=== PATIENT | male | born 1955 | race Caucasian/White ===

== ENCOUNTER 2018-03-27 14:45 | Emergency (ER) | payer MEDICARE, OTHER ==
[~2018-03-27] VITALS: Ht 185.4 cm; Wt 140.0 kg
[2018-03-27 15:24] LABS: BASOPHILS # (AUTO) 0.03 x10^3/uL (0-0.1); BASOPHILS % (AUTO) 0 % (0-1); EOSINOPHILS # (AUTO) 0.11 x10^3/uL (0-0.4); EOSINOPHILS % (AUTO) 2 % (1-7); LYMPHOCYTES # (AUTO) 1.71 x10^3/uL (1-3.4); LYMPHOCYTES % (AUTO) 27 % (22-44); MD NO; MEAN CORPUSCULAR HEMOGLOBIN 32.7 pg (27.5-34.5); MEAN CORPUSCULAR HGB CONC 33.3 g/dL (33.2-36.2); MEAN CORPUSCULAR VOLUME 98.3 fL (81-97); MEAN PLATELET VOLUME 8.5 fL (7.4-10.4); MONOCYTES # (AUTO) 0.43 x10^3/uL (0.2-0.8); MONOCYTES % (AUTO) 7 % (2-9); NEUTROPHILS # (AUTO) 4.15 x10^3/uL (1.8-6.8); NEUTROPHILS % (AUTO) 65 % (42-75); PLATELET COUNT 197 x10^3/uL (130-400); RED BLOOD COUNT 5.32 x10^6/uL (4.38-5.82); RED CELL DISTRIBUTION WIDTH 13.8 % (9.4-14.8)
[2018-03-27] MEDS ORDERED: LORazepam 1MG TABLET ONE ×2 (15:27)
[2018-03-27] MEDS ORDERED: LORazepam 1MG TABLET PO ONE (15:30)
[2018-03-27 15:32] LABS: ALBUMIN 3.5 g/dL (3.4-5.0); ANION GAP 8 mmol/L (5-15); CALCIUM 8.3 mg/dL (8.5-10.1); CHLORIDE 110 mmol/L (98-107); CREATININE 0.79 mg/dL (0.7-1.3)
[2018-03-27 16:26] VITALS: BP 124/95
[2018-03-27] MEDS ORDERED: ACETAMINOPHEN 500 MG TABLET ONE (16:52)
[2018-03-27] MEDS ORDERED: ACETAMINOPHEN 500 MG TABLET PO ONE (17:00)
== END 2018-03-27 17:14 | disposition home or self-care (01) ==
LOC: ED 16:50
DX: F41.1 Generalized anxiety disorder (principal); Z00.00 Encounter for general adult medical examination without abnormal findings; I10 Essential (primary) hypertension
CPT/HCPCS: 36415; 70450; 80048; 82040; 85025; 99285

== ENCOUNTER 2018-06-08 15:25 | Inpatient (IN) | payer OTHER ==
[~2018-06-08] VITALS: Ht 185.4 cm; Wt 136.0 kg
[2018-06-08] MEDS ORDERED: SODIUM CHLORIDE 0.9% 1,000ML IVBOLUS ONE (16:00)
[2018-06-08] MEDS ORDERED: SODIUM CHLORIDE FLUSH 10ML SYR IVF ONE (16:00)
[2018-06-08 16:18] LABS: BASOPHILS # (AUTO) 0.04 x10^3/uL (0-0.1); BASOPHILS % (AUTO) 0 % (0-1); EOSINOPHILS # (AUTO) 0.11 x10^3/uL (0-0.4); EOSINOPHILS % (AUTO) 1 % (1-7); LYMPHOCYTES # (AUTO) 1.22 x10^3/uL (1-3.4); LYMPHOCYTES % (AUTO) 15 % (22-44); MD NO; MEAN CORPUSCULAR HEMOGLOBIN 33.1 pg (27.5-34.5); MEAN CORPUSCULAR HGB CONC 33.2 g/dL (33.2-36.2); MEAN CORPUSCULAR VOLUME 99.9 fL (81-97); MEAN PLATELET VOLUME 7.9 fL (7.4-10.4); MONOCYTES # (AUTO) 0.86 x10^3/uL (0.2-0.8); MONOCYTES % (AUTO) 10 % (2-9); NEUTROPHILS # (AUTO) 6.09 x10^3/uL (1.8-6.8); NEUTROPHILS % (AUTO) 73 % (42-75); PLATELET COUNT 189 x10^3/uL (130-400); RED BLOOD COUNT 4.79 x10^6/uL (4.38-5.82); RED CELL DISTRIBUTION WIDTH 14.4 % (9.4-14.8)
[2018-06-08] MEDS ORDERED: ALBUTEROL/IPRATROPIUM 2.5MG/0.5MG, 3 ML ONE (16:18)
[2018-06-08 16:30] LABS: ALANINE AMINOTRANSFERASE 14 U/L (12-78); ALBUMIN 3.2 g/dL (3.4-5.0); ANION GAP 7 mmol/L (5-15); CALCIUM 8.2 mg/dL (8.5-10.1); CHLORIDE 107 mmol/L (98-107); CREATININE 0.71 mg/dL (0.7-1.3)
[2018-06-08] MEDS ORDERED: ALBUTEROL/IPRATROPIUM 2.5MG/0.5MG, 3 ML NPPB ONE (16:30)
[2018-06-08 16:34] LABS: ALKALINE PHOSPHATASE 59 U/L (45-117); BILIRUBIN,TOTAL 0.4 mg/dL (0.2-1.0); TOTAL PROTEIN 7.3 g/dL (6.4-8.2); TROPONIN I < 0.015 ng/mL (0.000-0.045)
[2018-06-08] MEDS ORDERED: CEFTRIAXONE 1,000 MG in SODIUM CHLORIDE 0.9% 50 ML IV ONE (17:00)
[2018-06-08] MEDS ORDERED: AZITHROMYCIN 500 MG in SODIUM CHLORIDE 0.9% 250 ML IV ONE (17:00)
[2018-06-08] MEDS ORDERED: CEFTRIAXONE PMX 1GM/50ML 50 ML ONE (17:26)
[2018-06-08] MEDS ORDERED: POLYETHYLENE GLYCOL 17 GM PACKET PO PRN (17:30)
[2018-06-08] MEDS ORDERED: BISACODYL 10 MG SUPP PR PRN (17:30)
[2018-06-08] MEDS ORDERED: ACETAMINOPHEN 325 MG TABLET PO PRN (17:30)
[2018-06-08] MEDS: CEFTRIAXONE 1,000 MG in SODIUM CHLORIDE 0.9% 50 ML IV SCH (17:30)
[2018-06-08] MEDS ORDERED: ONDANSETRON ODT 4 MG PO PRN (17:30)
[2018-06-08 18:24] LABS: FOLATE LEVEL 9.5 ng/mL (3.1-17.5)
[2018-06-08 18:48] VITALS: BP 149/85
[2018-06-08 19:04] LABS: MICROSCOPIC AUTO
[2018-06-08 19:06] LABS: CULTURE INDICATED? YES
[2018-06-08] MEDS: AZITHROMYCIN 500 MG in SODIUM CHLORIDE 0.9% 250 ML IV SCH (20:02)
[2018-06-08 20:21] VITALS: BP 159/96
[2018-06-08] MEDS ORDERED: ASPIRIN 81 MG TABLET EC PO SCH (21:00)
[2018-06-08] MEDS ORDERED: DIAZEPAM 2 MG TABLET PO SCH (21:00)
[2018-06-08] MEDS ORDERED: PROPRANOLOL 20 MG TABLET PO SCH (21:00)
[2018-06-08] MEDS ORDERED: RISPERIDONE 2 MG TABLET PO SCH (21:00)
[2018-06-08] MEDS ORDERED: ACETAMINOPHEN 325 MG TABLET PO SCH (21:00)
[2018-06-08] MEDS ORDERED: DIVALPROEX 500 MG TABLET.DR PO SCH (21:00)
[2018-06-08] MEDS ORDERED: DIVA500T4 PO ×2 (22:10)
[2018-06-08] MEDS ORDERED: PROP20TA PO (22:10)
[2018-06-08] MEDS ORDERED: PROP10TA PO (22:10)
[2018-06-08] MEDS ORDERED: RISP4TAB34 PO (22:10)
[2018-06-08] MEDS ORDERED: DIAZ2TAB PO (22:10)
[2018-06-08] MEDS ORDERED: ASPI-515 PO (22:10)
[2018-06-08] MEDS ORDERED: ACET-1600 PO (22:10)
[2018-06-08] MEDS ORDERED: DIAZEPAM 2 MG TABLET ONE (22:24)
[2018-06-08] MEDS: DIAZEPAM 5 MG TABLET PO SCH (22:30)
[2018-06-08] MEDS: PROPRANOLOL 20 MG TABLET PO SCH (22:30)
[2018-06-08] MEDS: DIVALPROEX 500 MG TAB.ER.24H PO SCH (22:30)
[2018-06-08] MEDS: ASPIRIN 81 MG TABLET EC PO SCH (22:30)
[2018-06-08] MEDS: RISPERIDONE 2 MG TABLET PO SCH (22:32)
[2018-06-08] MEDS: HEPARIN 5,000 UNITS/ML, 1ML SQ SCH (22:32)
[2018-06-08] MEDS: SODIUM CHLORIDE FLUSH 10ML SYR IVF SCH (22:32)
[2018-06-09] VITALS (7 sets, daily range): BP systolic 99–135; BP diastolic 66–80
[2018-06-09] MEDS ORDERED: KETOROLAC 30 MG/1 ML ONE (00:01)
[2018-06-09] MEDS: KETOROLAC 30 MG/1 ML IVPush PRN (00:03)
[2018-06-09] MEDS: DIVALPROEX 500 MG TAB.ER.24H PO SCH ×2 (05:42→20:27)
[2018-06-09] MEDS: HEPARIN 5,000 UNITS/ML, 1ML SQ SCH ×2 (05:42→15:57)
[2018-06-09] MEDS: PROPRANOLOL 20 MG TABLET PO SCH ×2 (05:43→20:28)
[2018-06-09 05:51] LABS: BASOPHILS # (AUTO) 0.01 x10^3/uL (0-0.1); BASOPHILS % (AUTO) 0 % (0-1); EOSINOPHILS # (AUTO) 0.04 x10^3/uL (0-0.4); EOSINOPHILS % (AUTO) 1 % (1-7); LYMPHOCYTES # (AUTO) 1.66 x10^3/uL (1-3.4); LYMPHOCYTES % (AUTO) 21 % (22-44); MD NO; MEAN CORPUSCULAR HEMOGLOBIN 33.3 pg (27.5-34.5); MEAN CORPUSCULAR HGB CONC 33.3 g/dL (33.2-36.2); MEAN CORPUSCULAR VOLUME 100.1 fL (81-97); MEAN PLATELET VOLUME 8.3 fL (7.4-10.4); MONOCYTES # (AUTO) 1.04 x10^3/uL (0.2-0.8); MONOCYTES % (AUTO) 13 % (2-9); NEUTROPHILS % (AUTO) 65 % (42-75); PLATELET COUNT 176 x10^3/uL (130-400); RED BLOOD COUNT 4.27 x10^6/uL (4.38-5.82); RED CELL DISTRIBUTION WIDTH 13.9 % (9.4-14.8)
[2018-06-09 06:01] LABS: ALBUMIN 2.7 g/dL (3.4-5.0); ANION GAP 8 mmol/L (5-15); CALCIUM 7.8 mg/dL (8.5-10.1); CHLORIDE 110 mmol/L (98-107)
[2018-06-09 06:03] LABS: TROPONIN I < 0.015 ng/mL (0.000-0.045)
[2018-06-09 06:04] LABS: ALANINE AMINOTRANSFERASE 11 U/L (12-78); ALKALINE PHOSPHATASE 47 U/L (45-117); BILIRUBIN,TOTAL 0.5 mg/dL (0.2-1.0); TOTAL PROTEIN 6.5 g/dL (6.4-8.2)
[2018-06-09] MEDS ORDERED: DIAZEPAM 2 MG TABLET ONE ×2 (07:45→20:15)
[2018-06-09] MEDS: SODIUM CHLORIDE FLUSH 10ML SYR IVF SCH ×2 (07:56→20:27)
[2018-06-09] MEDS: DIAZEPAM 5 MG TABLET PO SCH ×2 (07:58→20:29)
[2018-06-09] MEDS: SENNA/DOCUSATE TABLET PO SCH (07:59)
[2018-06-09] MEDS: RISPERIDONE 2 MG TABLET PO SCH ×2 (08:00→20:29)
[2018-06-09] MEDS ORDERED: NS + 20MEQ KCL 1,000 ML IV SCH (09:00)
[2018-06-09] MEDS ORDERED: PROPRANOLOL 10 MG TABLET PO SCH (09:00)
[2018-06-09] MEDS ORDERED: DIVALPROEX 500 MG TABLET.DR PO SCH (09:00)
[2018-06-09] MEDS: CEFTRIAXONE 1,000 MG in SODIUM CHLORIDE 0.9% 50 ML IV SCH (17:29)
[2018-06-09] MEDS: AZITHROMYCIN 500 MG in SODIUM CHLORIDE 0.9% 250 ML IV SCH (18:29)
[2018-06-09] MEDS: ASPIRIN 81 MG TABLET EC PO SCH (20:29)
[2018-06-10] MEDS: HEPARIN 5,000 UNITS/ML, 1ML SQ SCH ×3 (00:04→16:03)
[2018-06-10 02:30] VITALS: BP 109/70
[2018-06-10] MEDS: DIVALPROEX 500 MG TAB.ER.24H PO SCH ×2 (05:24→20:46)
[2018-06-10] MEDS: PROPRANOLOL 20 MG TABLET PO SCH ×2 (05:24→20:47)
[2018-06-10] MEDS: KETOROLAC 30 MG/1 ML IVPush PRN (05:41)
[2018-06-10] MEDS ORDERED: DIAZEPAM 2 MG TABLET ONE ×2 (07:52→20:42)
[2018-06-10] MEDS: SODIUM CHLORIDE FLUSH 10ML SYR IVF SCH ×2 (08:03→22:45)
[2018-06-10] MEDS: RISPERIDONE 2 MG TABLET PO SCH ×2 (08:04→20:47)
[2018-06-10] MEDS: SENNA/DOCUSATE TABLET PO SCH (08:06)
[2018-06-10] MEDS: DIAZEPAM 5 MG TABLET PO SCH ×2 (08:10→20:48)
[2018-06-10 08:15] VITALS: BP 112/72
[2018-06-10 12:55] VITALS: BP 107/70
[2018-06-10] MEDS: CEFTRIAXONE PMX 1GM/50ML 50 ML IV SCH (17:47)
[2018-06-10] MEDS: AZITHROMYCIN 500 MG in SODIUM CHLORIDE 0.9% 250 ML IV SCH (18:31)
[2018-06-10 18:46] VITALS: BP 127/72
[2018-06-10] MEDS ORDERED: ALBUTEROL/IPRATROPIUM 2.5MG/0.5MG, 3 ML NPPB PRN (20:00)
[2018-06-10] MEDS: ASPIRIN 81 MG TABLET EC PO SCH (20:46)
[2018-06-11 00:21] VITALS: BP 91/54
[2018-06-11] MEDS: HEPARIN 5,000 UNITS/ML, 1ML SQ SCH ×3 (00:21→17:57)
[2018-06-11] MEDS: PROPRANOLOL 20 MG TABLET PO SCH (06:11)
[2018-06-11] MEDS: DIVALPROEX 500 MG TAB.ER.24H PO SCH (06:12)
[2018-06-11 07:29] VITALS: BP 106/68
[2018-06-11] MEDS ORDERED: DIAZEPAM 2 MG TABLET ONE (08:08)
[2018-06-11] MEDS: SENNA/DOCUSATE TABLET PO SCH (09:00)
[2018-06-11] MEDS: KETOROLAC 30 MG/1 ML IVPush PRN (09:33)
[2018-06-11] MEDS: RISPERIDONE 2 MG TABLET PO SCH (09:33)
[2018-06-11] MEDS: DIAZEPAM 5 MG TABLET PO SCH (09:33)
[2018-06-11] MEDS: SODIUM CHLORIDE FLUSH 10ML SYR IVF SCH (09:34)
[2018-06-11 12:34] VITALS: BP 118/79
[2018-06-11] MEDS ORDERED: DOXY100T PO (15:12)
[2018-06-11] MEDS ORDERED: CEFD300C37 PO (15:12)
[2018-06-11] MEDS: CEFTRIAXONE PMX 1GM/50ML 50 ML IV SCH ×2 (17:30→17:57)
[2018-06-11] MEDS ORDERED: AZITHROMYCIN 500 MG in DEXTROSE 5% 250 ML IV SCH (22:30)
== END 2018-06-11 19:30 | disposition home or self-care (01) | DRG 871 ==
LOC: ED 16:28 → EDIP 16:36 → 4EST 18:38
PROVIDERS: ADMIT Internal Medicine; ATTEND Family Medicine
DX: A41.9 Sepsis, unspecified organism (principal); J15.9 Unspecified bacterial pneumonia; J96.01 Acute respiratory failure with hypoxia; E44.1 Mild protein-calorie malnutrition; Z68.41 Body mass index [BMI] 40.0-44.9, adult; I10 Essential (primary) hypertension; D75.89 Other specified diseases of blood and blood-forming organs; E66.01 Morbid (severe) obesity due to excess calories; F32.9 Major depressive disorder, single episode, unspecified; F41.9 Anxiety disorder, unspecified; Z66 Do not resuscitate; Z85.828 Personal history of other malignant neoplasm of skin
CPT/HCPCS: 36415; 36600; 71045; 80053; 81001; 82607; 82746; 82803; 83605; 83735; 83880; 84484; 85025; 87040; 87086; 93005; 94640; 99285; G0378; J0456; J0696; J1644; J1885; J3480; J7620; J7050